=== PATIENT | female | born 1965 | race Caucasian/White ===

== ENCOUNTER 2018-02-26 18:25 | Observation (INO) ==
--- NOTE | 2018-02-26 18:40 | Emergency Department Note ---
Disposition Clinical Impression: Acute appendicitis Qualifiers: Acute appendicitis type: with localized peritonitis Appendicitis gangrene presence: without gangrene Appendicitis perforation presence: without perforation Appendicitis abscess presence: without abscess Qualified Code(s): K35.30 - Acute appendicitis with localized peritonitis, without perforation or gangrene Disposition: Home, Self-Care Condition: Good Referrals: Elaine Sosa ELECTROPHYSIOLOGY NURSE PRACTITIONER [Primary Care Provider] - Time of Disposition: 20:58 General Adult HPI - General Chief complaint: ED Abdominal Pain Stated complaint: Lower abd pain Time Seen by Provider: 02/26/18 18:38 Source: patient Limitations: no limitations Nursing Notes Reviewed: Yes Vital Signs Reviewed: Yes - History of Present Illness HPI Narrative: Female patient presenting to [facility] room complaining of abdominal pain is certainly yesterday around 11:00. She has no medical history does not take any medication is never had an abdominal surgery before. She states that she has had subjective fevers today. She thinks that they are low-grade. She has had associated nausea but no vomiting. No diarrhea. States the pain started out as a cramping sensation across her abdomen around her umbilicus however is now localized right lower quadrant. She does not have a desire to eat today. She denies any swelling or edema to her extremities. Denies any rashes. Denies any shortness of breath or chest pain. Denies any abdominal swelling. She denies any urinary symptoms such as dysuria or blood in her urine. Denies any blood in her stool. Pain Scale: 6 - Related Data Allergies Allergy/AdvReac Type Severity Reaction Status Date / Time No Known Allergies Allergy Verified 02/26/18 18:46 All systems ED: reviewed and negative except as stated. Review of Systems: As Per HPI Past Medical History - Past Medical History Attestation: Yes The following information was validated with the patient. Source: patient Medical history: Reports: no medical history Surgical history: Reports: no surgical history Physical Exam - General Limitations: no limitations General appearance: alert, in no apparent distress - Head Head exam: atraumatic, normocephalic, normal inspection - Eye Eye exam: Present: normal appearance, PERRL, EOMI - ENT ENT exam: normal exam, normal oropharynx, mucous membranes moist - Neck Neck exam: Present: normal inspection, full ROM, trachea midline - Chest Chest inspection: Present: normal inspection, symmetric chest wall rise - Respiratory Respiratory exam: Present: normal lung sounds bilaterally. Absent: respiratory distress, accessory muscle use - Cardiovascular Cardiovascular exam: Present: regular rate, normal rhythm, normal heart sounds - Abdominal Exam Abdominal exam: Present: soft, tenderness (To palpation of right lower quadrant.). Absent: distention, guarding, rebound, rigidity - Extremities Exam Extremities exam: Present: normal inspection, full ROM, normal capillary refill. Absent: tenderness, pedal edema - Back Exam Back exam: Present: normal inspection, full ROM. Absent: tenderness - Neurological Exam Neurological exam: Present: alert, oriented X3 - Psychiatric Psychiatric exam: Present: normal affect, normal mood - Skin Skin exam: Present: warm, dry, intact, normal color. Absent: rash Course Course Narrative: Patient with abdominal pain that started as a cramping sensation around her periumbilical area and has now localized her right lower quadrant. Started ye sterday. Does not want to eat today. No associated vomiting. The states that she does have a subjective low-grade fever. - Reevaluation(s) Reevaluation #1: Patient does have uncomplicated appendicitis. We will admit patient to Dr. Padilla. He is taking her to surgery at this time. - Consultations Consultation #1: I spoke with Dr Padilla. He will be over to see the patient. Time: 20:10 Vital Signs Temperature 99.2 F 02/26/18 18:26 Pulse Rate 103 02/26/18 18:26 Respiratory Rate 17 02/26/18 18:26 Blood Pressure 150/87 02/26/18 18:26 O2 Sat by Pulse Oximetry 95 02/26/18 18:26 Temperature 99.2 F 02/26/18 18:41 Pulse Rate 98 02/26/18 19:31 Respiratory Rate 18 02/26/18 20:48 Blood Pressure 131/54 02/26/18 20:48 O2 Sat by Pulse Oximetry 98 02/26/18 19:31 Oxygen Delivery Oxygen Delivery Room Air Medical Decision Making - Medical Records Medical records reviewed: Yes I reviewed the patient's medical records. - Lab Data Lab results reviewed: Yes I reviewed the patient's lab results. Result diagrams: 02/26/18 18:54 02/26/18 18:54 Lab Results 02/26/18 02/26/18 02/26/18 Range/Units 18:54 18:54 19:00 WBC 13.7 H (4.3-11.1) K/mcL RBC 4.30 (3.82-4.97) M/mcL Hgb 13.6 (11.5-15.4) g/dL Hct 40.4 (35.3-44.9) % MCV 94.0 (83.0-100.0) fL MCH 31.6 (28.0-33.3) pg MCHC 33.7 (31.6-35.5) g/dL RDW 12.3 (11.5-14.5) % Plt Count 291 (140-400) K/mcL MPV 9.1 L (9.4-12.4) fL Immature Gran % 0.4 (0-4) % Seg Neutrophils % 79.0 % Lymphocytes % 12.0 % Monocytes % 8.0 % Eosinophils % 0.4 % Basophils % 0.2 % Neutrophils # 10.8 H (1.6-8.9) K/mcL Lymphocytes # 1.6 (0.6-4.6) K/mcL Monocytes # 1.1 (0.0-1.3) K/mcL Eosinophils # 0.1 (0.0-0.6) K/mcL Basophils # 0.0 (0.0-0.2) K/mcL PT 13.7 H (9.4-12.1) Seconds INR 1.2 Sodium 138 (136-145) mEq/L Potassium 4.0 (3.5-5.1) mEq/L Chloride 102 (98-107) mEq/L Carbon Dioxide 28 (23-29) mEq/L BUN 13 (6-20) mg/dL Creatinine 0.84 (0.60-1.20) mg/dL Est GFR ( Amer) > 60 (> 60) Est GFR (Non-Af Amer) > 60 (> 60) BUN/Creatinine Ratio 15 (6-26) Glucose 94 (70-105) mg/dL Calculated Osmolality 286 (280-300) Calcium 9.3 (8.6-10.3) mg/dL Total Bilirubin 0.8 (0.3-1.0) mg/dL AST 14 (13-39) Units/L ALT 16 (7-52) Units/L Alkaline Phosphatase 75 (34-104) Units/L Serum Total Protein 7.8 (6.4-8.9) g/dL Albumin 4.4 (3.5-5.7) g/dL Globulin 3.4 (2.4-3.5) g/dL Albumin/Globulin Ratio 1.3 (1.1-2.2) Urine Color (Yellow) Urine Clarity (Clear) Urine pH (5.0-8.0) pH Units Ur Specific [place] (1.010-1.025) Urine Protein (Neg-Trace) mg/dL Urine Glucose (UA) (Normal) mg/dL Urine Ketones (Negative) mg/dL Urine Blood (Negative) Urine Nitrite (Negative) Urine Bilirubin (Negative) Urine Urobilinogen (Normal) mg/dL Ur Leukocyte Esterase (Negative) Ur Culture Indicated? (NO) 02/26/18 Range/Units 19:29 WBC (4.3-11.1) K/mcL RBC (3.82-4.97) M/mcL Hgb (11.5-15.4) g/dL Hct (35.3-44.9) % MCV (83.0-100.0) fL MCH (28.0-33.3) pg MCHC (31.6-35.5) g/dL RDW (11.5-14.5) % Plt Count (140-400) K/mcL MPV (9.4-12.4) fL Immature Gran % (0-4) % Seg Neutrophils % % Lymphocytes % % Monocytes % % Eosinophils % % Basophils % % Neutrophils # (1.6-8.9) K/mcL Lymphocytes # (0.6-4.6) K/mcL Monocytes # (0.0-1.3) K/mcL Eosinophils # (0.0-0.6) K/mcL Basophils # (0.0-0.2) K/mcL PT (9.4-12.1) Seconds INR Sodium (136-145) mEq/L Potassium (3.5-5.1) mEq/L Chloride (98-107) mEq/L Carbon Dioxide (23-29) mEq/L BUN (6-20) mg/dL Creatinine (0.60-1.20) mg/dL Est GFR ( Amer) (> 60) Est GFR (Non-Af Amer) (> 60) BUN/Creatinine Ratio (6-26) Glucose (70-105) mg/dL Calculated Osmolality (280-300) Calcium (8.6-10.3) mg/dL Total Bilirubin (0.3-1.0) mg/dL AST (13-39) Units/L ALT (7-52) Units/L Alkaline Phosphatase (34-104) Units/L Serum Total Protein (6.4-8.9) g/dL Albumin (3.5-5.7) g/dL Globulin (2.4-3.5) g/dL Albumin/Globulin Ratio (1.1-2.2) Urine Color Yellow (Yellow) Urine Clarity Clear (Clear) Urine pH 6.0 (5.0-8.0) pH Units Ur Specific [place] > 1.030 H (1.010-1.025) Urine Protein Negative (Neg-Trace) mg/dL Urine Glucose (UA) Normal (Normal) mg/dL Urine Ketones 40 H (Negative) mg/dL Urine Blood Negative (Negative) Urine Nitrite Negative (Negative) Urine Bilirubin Negative (Negative) Urine Urobilinogen Normal (Normal) mg/dL Ur Leukocyte Esterase Negative (Negative) Ur Culture Indicated? NO (NO) - Radiology Data Radiology results reviewed: Yes I reviewed the patient's radiology results. Abdomen/Pelvis CT 02/26/18 18:54 IMPRESSION: Acute uncomplicated appendicitis. Fatty infiltration of the liver. Gallbladder stones or sludge. D/ / Lisa Jeffries Cha, MD / Lisa Jeffries Cha, MD Interpreting Provider: Lisa Jeffries Cha, MD
--- NOTE | 2018-02-26 19:00 | Emergency Department Note ---
Disposition Clinical Impression: Acute appendicitis Disposition: Home, Self-Care Condition: Good General Adult HPI - General Chief complaint: ED Abdominal Pain Stated complaint: abd pain Time Seen by Provider: 02/26/18 18:38 Source: patient Limitations: no limitations - History of Present Illness Pain Scale: 5 - Related Data Allergies Allergy/AdvReac Type Severity Reaction Status Date / Time No Known Allergies Allergy Verified 02/26/18 18:46 Past Medical History - Past Medical History Medical history: Reports: no medical history Psychiatric history: Reports: no psych history - Social History Smoking Status: Former smoker Smokeless Tobacco Status: No Alcohol use: Reports: rarely Drug use: Reports: none Physical Exam - General Limitations: no limitations General appearance: alert Course Vital Signs Temperature 99.2 F 02/26/18 18:26 Pulse Rate 103 02/26/18 18:26 Respiratory Rate 17 02/26/18 18:26 Blood Pressure 150/87 02/26/18 18:26 O2 Sat by Pulse Oximetry 95 02/26/18 18:26 Temperature 99.2 F 02/26/18 18:41 Pulse Rate 98 02/26/18 19:31 Respiratory Rate 18 02/26/18 20:48 Blood Pressure 131/54 02/26/18 20:48 O2 Sat by Pulse Oximetry 98 02/26/18 19:31 Oxygen Delivery Oxygen Delivery Room Air Medical Decision Making - Lab Data Result diagrams: 02/26/18 18:54 02/26/18 18:54 Lab Results 02/26/18 02/26/18 02/26/18 Range/Units 18:54 18:54 19:00 WBC 13.7 H (4.3-11.1) K/mcL RBC 4.30 (3.82-4.97) M/mcL Hgb 13.6 (11.5-15.4) g/dL Hct 40.4 (35.3-44.9) % MCV 94.0 (83.0-100.0) fL MCH 31.6 (28.0-33.3) pg MCHC 33.7 (31.6-35.5) g/dL RDW 12.3 (11.5-14.5) % Plt Count 291 (140-400) K/mcL MPV 9.1 L (9.4-12.4) fL Immature Gran % 0.4 (0-4) % Seg Neutrophils % 79.0 % Lymphocytes % 12.0 % Monocytes % 8.0 % Eosinophils % 0.4 % Basophils % 0.2 % Neutrophils # 10.8 H (1.6-8.9) K/mcL Lymphocytes # 1.6 (0.6-4.6) K/mcL Monocytes # 1.1 (0.0-1.3) K/mcL Eosinophils # 0.1 (0.0-0.6) K/mcL Basophils # 0.0 (0.0-0.2) K/mcL PT 13.7 H (9.4-12.1) Seconds INR 1.2 Sodium 138 (136-145) mEq/L Potassium 4.0 (3.5-5.1) mEq/L Chloride 102 (98-107) mEq/L Carbon Dioxide 28 (23-29) mEq/L BUN 13 (6-20) mg/dL Creatinine 0.84 (0.60-1.20) mg/dL Est GFR ( Amer) > 60 (> 60) Est GFR (Non-Af Amer) > 60 (> 60) BUN/Creatinine Ratio 15 (6-26) Glucose 94 (70-105) mg/dL Calculated Osmolality 286 (280-300) Calcium 9.3 (8.6-10.3) mg/dL Total Bilirubin 0.8 (0.3-1.0) mg/dL AST 14 (13-39) Units/L ALT 16 (7-52) Units/L Alkaline Phosphatase 75 (34-104) Units/L Serum Total Protein 7.8 (6.4-8.9) g/dL Albumin 4.4 (3.5-5.7) g/dL Globulin 3.4 (2.4-3.5) g/dL Albumin/Globulin Ratio 1.3 (1.1-2.2) Urine Color (Yellow) Urine Clarity (Clear) Urine pH (5.0-8.0) pH Units Ur Specific [place] (1.010-1.025) Urine Protein (Neg-Trace) mg/dL Urine Glucose (UA) (Normal) mg/dL Urine Ketones (Negative) mg/dL Urine Blood (Negative) Urine Nitrite (Negative) Urine Bilirubin (Negative) Urine Urobilinogen (Normal) mg/dL Ur Leukocyte Esterase (Negative) Ur Culture Indicated? (NO) 02/26/18 Range/Units 19:29 WBC (4.3-11.1) K/mcL RBC (3.82-4.97) M/mcL Hgb (11.5-15.4) g/dL Hct (35.3-44.9) % MCV (83.0-100.0) fL MCH (28.0-33.3) pg MCHC (31.6-35.5) g/dL RDW (11.5-14.5) % Plt Count (140-400) K/mcL MPV (9.4-12.4) fL Immature Gran % (0-4) % Seg Neutrophils % % Lymphocytes % % Monocytes % % Eosinophils % % Basophils % % Neutrophils # (1.6-8.9) K/mcL Lymphocytes # (0.6-4.6) K/mcL Monocytes # (0.0-1.3) K/mcL Eosinophils # (0.0-0.6) K/mcL Basophils # (0.0-0.2) K/mcL PT (9.4-12.1) Seconds INR Sodium (136-145) mEq/L Potassium (3.5-5.1) mEq/L Chloride (98-107) mEq/L Carbon Dioxide (23-29) mEq/L BUN (6-20) mg/dL Creatinine (0.60-1.20) mg/dL Est GFR ( Amer) (> 60) Est GFR (Non-Af Amer) (> 60) BUN/Creatinine Ratio (6-26) Glucose (70-105) mg/dL Calculated Osmolality (280-300) Calcium (8.6-10.3) mg/dL Total Bilirubin (0.3-1.0) mg/dL AST (13-39) Units/L ALT (7-52) Units/L Alkaline Phosphatase (34-104) Units/L Serum Total Protein (6.4-8.9) g/dL Albumin (3.5-5.7) g/dL Globulin (2.4-3.5) g/dL Albumin/Globulin Ratio (1.1-2.2) Urine Color Yellow (Yellow) Urine Clarity Clear (Clear) Urine pH 6.0 (5.0-8.0) pH Units Ur Specific [place] > 1.030 H (1.010-1.025) Urine Protein Negative (Neg-Trace) mg/dL Urine Glucose (UA) Normal (Normal) mg/dL Urine Ketones 40 H (Negative) mg/dL Urine Blood Negative (Negative) Urine Nitrite Negative (Negative) Urine Bilirubin Negative (Negative) Urine Urobilinogen Normal (Normal) mg/dL Ur Leukocyte Esterase Negative (Negative) Ur Culture Indicated? NO (NO) Attestation Statement - Attestation Attestation: I examined this patient and my medical decision-making was reviewed with the Resident Physician. I agree with the documented findings, disposition and treatment plan as described except to the extent set forth below. Patient presents to the emergency department she compared lower abdominal pain. Patient saw her PCP who sent her to the emergency department for evaluation. Patient is not vomiting. No fever. Has not eaten today. On examination she has right lower quadrant tenderness. Plan. Labs, meds, and CT scan. CT scan shows acute unconjugated appendicitis. We will consult surgery. Patient to the OR
[2018-02-26 19:22] LABS: Basophils % 0.2 %; Eosinophils # 0.1 K/mcL (0.0-0.6); Eosinophils % 0.4 %; Hematocrit 40.4 % (35.3-44.9); Hemoglobin 13.6 g/dL (11.5-15.4); Immature Granulocytes % 0.4 % (0-4); Lymphocytes # 1.6 K/mcL (0.6-4.6); Mean Corpuscular HGB Conc 33.7 g/dL (31.6-35.5); Mean Corpuscular Hemoglobin 31.6 pg (28.0-33.3); Mean Platelet Volume 9.1 fL (9.4-12.4); Monocytes # 1.1 K/mcL (0.0-1.3); Neutrophils # 10.8 K/mcL (1.6-8.9); Platelet Count 291 K/mcL (140-400); Red Cell Distribution Width 12.3 % (11.5-14.5)
[2018-02-26 19:35] LABS: Alanine Aminotransferase 16 Units/L (7-52); Albumin 4.4 g/dL (3.5-5.7); Albumin/Globulin Ratio 1.3 (1.1-2.2); Alkaline Phosphatase 75 Units/L (34-104); Aspartate Amino Transferase 14 Units/L (13-39); BUN/Creatinine Ratio 15 (6-26); Bilirubin,Total 0.8 mg/dL (0.3-1.0); Blood Urea Nitrogen 13 mg/dL (6-20); Calcium 9.3 mg/dL (8.6-10.3); Carbon Dioxide 28 mEq/L (23-29); Chloride 102 mEq/L (98-107); Globulin 3.4 g/dL (2.4-3.5); Glucose 94 mg/dL (70-105); Osmolality,Calculated 286 (280-300); Sodium 138 mEq/L (136-145); Total Protein 7.8 g/dL (6.4-8.9); eGFR For Non-African Americans > 60 (> 60)
[2018-02-26 19:44] LABS: Bilirubin,Urine Negative (Negative); Blood,Urine Negative (Negative); Clarity,Urine Clear (Clear); Color,Urine Yellow (Yellow); Glucose,Urine (UA) Normal (Normal); Ketones,Urine 40 mg/dL (Negative); Leukocyte Esterase,Urine Negative (Negative); Nitrite,Urine Negative (Negative); Protein,Urine Negative (Neg-Trace); Specific Gravity,Urine > 1.030 (1.010-1.025); Urobilinogen,Urine Normal (Normal)
[2018-02-26 20:02] LABS: INR 1.2; Prothrombin Time 13.7 Seconds (9.4-12.1)
--- NOTE | 2018-02-26 20:46 | General Surg History&Physical ---
Date of Encounter: 02/26/18 Time of Encounter: 20:44 Assessment and Plan (1) Acute appendicitis Current Visit: Yes Status: Acute The assessment and plan as outlined above was discussed with the patient and/or family members who expressed understanding and agreement. All questions were answered. I expect to the patient that her CT scan images and report and laboratory studies are consistent with acute appendicitis and we will proceed with a laparoscopic appendectomy. Risks and benefits have been discussed with the patient and she agrees to the above plan. Qualifiers: Acute appendicitis type: with localized peritonitis Appendicitis gangrene presence: without gangrene Appendicitis perforation presence: without perforation Appendicitis abscess presence: without abscess Qualified Code(s): K35.30 - Acute appendicitis with localized peritonitis, without perforation or gangrene History of Present Illness Chief complaint: Right lower abdominal pain HPI: Ms. Rubalcava is a 52 year old female with no significant past medical history who states that yesterday at 11 AM she started to have right lower quadrant/pelvic pain. The pain was not really severely she was involved in any type of activity. She denies any nausea or vomiting and denies any diarrhea or constipation. Due to the persistent pain symptoms she presented herself to the emergency room and laboratory studies and a CT scan were performed demonstrating acute appendicitis. Past Med Surg Social Fam HX - Past Medical History Medical history: no medical history Psychiatric history: no psych history - Past Surgical History Surgical History: other (Left wrist ganglion cyst) - Social History Smoking Status: Former smoker Smokeless Tobacco Status: No Alcohol use: rarely Drug use: none Medications and Allergies Allergy/AdvReac Type Severity Reaction Status Date / Time No Known Allergies Allergy Verified 02/26/18 18:46 Review of Systems All systems PM: reviewed and no additional remarkable complaints except as stated All systems PM: The remainder of the systems were reviewed and are negative General Surgery Exam Initial Vital Signs Temp Pulse Resp BP Pulse Ox 99.2 F 103 17 150/87 95 02/26/18 18:26 02/26/18 18:26 02/26/18 18:26 02/26/18 18:26 02/26/18 18:26 - Eyes PERRL, normal ocular movement - Respiratory normal expansion, normal respiratory effort - Cardiovascular Cardiovascular exam: Present: RRR, no murmurs/rubs/gallops - Abdomen Abdomen general surgery: Present: soft, tender (Unasyn the right lower quadrant/pelvic region) - Neurologic Present: CN 2-12 grossly intact - Musculoskeletal Present: other (Clubbing cyanosis or edema) - Psychiatric Psychiatric general surgery: Present: A&Ox3 Results - Labs 02/26/18 18:54 02/26/18 18:54 Abnormal lab results WBC 13.7 K/mcL (4.3-11.1) H 02/26/18 18:54 MPV 9.1 fL (9.4-12.4) L 02/26/18 18:54 Neutrophils # 10.8 K/mcL (1.6-8.9) H 02/26/18 18:54 PT 13.7 Seconds (9.4-12.1) H 02/26/18 19:00 Ur Specific [place] > 1.030 (1.010-1.025) H 02/26/18 19:29 Urine Ketones 40 mg/dL (Negative) H 02/26/18 19:29 Diabetes panel 02/26/18 Range/Units 18:54 Sodium 138 (136-145) mEq/L Potassium 4.0 (3.5-5.1) mEq/L Chloride 102 (98-107) mEq/L Carbon Dioxide 28 (23-29) mEq/L BUN 13 (6-20) mg/dL Creatinine 0.84 (0.60-1.20) mg/dL Glucose 94 (70-105) mg/dL Calcium 9.3 (8.6-10.3) mg/dL AST 14 (13-39) Units/L ALT 16 (7-52) Units/L Alkaline Phosphatase 75 (34-104) Units/L Albumin 4.4 (3.5-5.7) g/dL Calcium panel 02/26/18 Range/Units 18:54 Calcium 9.3 (8.6-10.3) mg/dL Albumin 4.4 (3.5-5.7) g/dL Pituitary panel 02/26/18 Range/Units 18:54 Sodium 138 (136-145) mEq/L Potassium 4.0 (3.5-5.1) mEq/L Chloride 102 (98-107) mEq/L Carbon Dioxide 28 (23-29) mEq/L BUN 13 (6-20) mg/dL Creatinine 0.84 (0.60-1.20) mg/dL Glucose 94 (70-105) mg/dL Calcium 9.3 (8.6-10.3) mg/dL Adrenal panel 02/26/18 Range/Units 18:54 Sodium 138 (136-145) mEq/L Potassium 4.0 (3.5-5.1) mEq/L Chloride 102 (98-107) mEq/L Carbon Dioxide 28 (23-29) mEq/L BUN 13 (6-20) mg/dL Creatinine 0.84 (0.60-1.20) mg/dL Glucose 94 (70-105) mg/dL Calcium 9.3 (8.6-10.3) mg/dL Total Bilirubin 0.8 (0.3-1.0) mg/dL AST 14 (13-39) Units/L ALT 16 (7-52) Units/L Alkaline Phosphatase 75 (34-104) Units/L Albumin 4.4 (3.5-5.7) g/dL All other labs normal. - Imaging CT scan - abdomen: report reviewed, image reviewed (I personally reviewed the CT scan images and report which show evidence of inflammation around the appendix and an enlarged appendix consistent with acute appendicitis)
--- NOTE | 2018-02-26 21:03 | Anesthesia Evaluation PreOp ---
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 Significant HX Other Medical History: Denies Any Significant HX Anesthesia History: No Prior Anesthetic Complications, Past Anesthesia Alcohol Use: rarely Drug use: none Medications and Allergies Allergy/AdvReac Type Severity Reaction Status Date / Time No Known Allergies Allergy Verified 02/26/18 18:46 - Meds/Allergy Pre-op Review Medications Reviewed: Yes Allergies Reviewed: Yes Beta Blockers on Current Med List: No Anesthesia Results - Labs 02/26/18 18:54 02/26/18 18:54 Anesthesia Exam Vital Signs/O2 Sat, Most Current Temp Pulse Resp BP Pulse Ox 99.2 F 98 18 131/54 98 02/26/18 18:41 02/26/18 19:31 02/26/18 20:48 02/26/18 20:48 02/26/18 19:31 Height: 5'10"/1.78m Weight: 248 lbs/112.5 kg NPO (# of Hours): 8 Pain Scale: 0 Pain Scale Used: Numeric (1 - 10) - HEENT Pupil (Motor): EOMI Mallampati: III Teeth: Normal Oral Opening: Greater than 3 - WEAVING TEACHER LOC: Oriented WEAVING TEACHER Motor: Normal RUE, Normal LUE, Normal RLE, Normal LLE, Normal Face WEAVING TEACHER Sensory: Normal: RUE, LUE, RLE, LLE, Face - Cardiac Rhythm: Regular Murmur: None - Pulmonary Breath Sounds: bilateral Clear Respiratory Effort: Symmetrical Anesthesia Assess/Plan ASA Score: 2 Modified Eileen Scale for Level of Consciousness: Cooperative, oriented, and tranquil Anesthetic Plan: General Monitoring Plan: Standard Monitors Recovery Plan: PACU
[2018-02-26] MEDS ORDERED: *HR* HYDROmorphone (PF) 1 MG/ML SYRINGE IVP PRN (21:12)
[2018-02-26] MEDS ORDERED: Ondansetron 4 MG/2 ML VIAL IVP ONE (21:12)
[2018-02-26] MEDS ORDERED: Acetaminophen IV 1,000 MG/100 ML INFUS..BTL ONE (21:14)
[2018-02-26] MEDS ORDERED: Neostigmine Methylsulfate 3 MG/3 ML SYRINGE ONE (21:15)
[2018-02-26] MEDS ORDERED: *HR* Propofol 200 MG/20 ML VIAL IVP ONE (21:18)
[2018-02-26] MEDS ORDERED: Ondansetron 4 MG/2 ML VIAL ONE (21:18)
[2018-02-26] MEDS ORDERED: *HR* Rocuronium Bromide 50 MG/5 ML VIAL ONE (21:18)
[2018-02-26] MEDS ORDERED: Lidocaine -MPF 2% 2 ML VIAL ONE (21:18)
[2018-02-26] MEDS ORDERED: *HR* Succinylcholine 200 MG/10 ML VIAL IVP ONE (21:18)
[2018-02-26] MEDS ORDERED: *HR* Midazolam HCl 2 MG/2 ML VIAL ONE (21:18)
[2018-02-26] MEDS ORDERED: *HR* FentaNYL (PF) 100 MCG/2 ML VIAL ONE (21:18)
[2018-02-26] MEDS ORDERED: Dexamethasone 4 MG/ML VIAL ONE (21:18)
[2018-02-26] MEDS ORDERED: CefOXitin 2,000 MG VIAL ONE (21:22)
[2018-02-26] MEDS ORDERED: *HR* Morphine 10 MG/ML VIAL ONE (22:24)
--- NOTE | 2018-02-26 22:32 | Operative Note ---
Date of procedure: 02/26/18 Pre-op diagnosis: Acute appendicitis Post-op diagnosis: same Procedure: Laparoscopic appendectomy Anesthesia: [facility] Surgeon: Rosas Padilla Was there an back office medical assistant present: No Estimated blood loss (cc): 15 Specimen: appendix Condition: stable Disposition: PACU Procedure in Detail: Date of surgery: 02/26/18 After properly identifying the patient, the patient was brought to the operating room and placed in the supine position. After proper IV sedation was achieved followed by general endotracheal intubation, the patient's abdomen was prepped and draped in a normal sterile fashion. A timeout was performed noting the patient's name and type of procedure to be performed. A subumbilical incision was made down to the level of the rectus fascia. Once rectus fascia was incised and the abdomen was entered, a 12 mm port was placed in the incision and the abdomen was insufflated with carbon dioxide. A laparoscopic camera was placed through the port which showed no injury to the edge abdominal organs upon entry. A suprapubic 5 mm port and a left lower quadrant 5 mm port were then placed under direct camera visualization. The patient was placed in a Trendelenburg position with the left side tilted downwards. The right lower quadrant was examined and there was evidence of inflammation and adherence of the small bowel towards the colon. This was bluntly dissected away until the appendix could be identified with a rim of fibrinous exudate noted around it. The appendix was carefully grasped and retracted superiorly which revealed evidence of a small leak or perforation. This was immediately suctioned and the base of the appendix was examined. A [place] dissector was used to dissect between the base of the appendix and the measle appendix. A THOMAS stapler was used to transect across the base of the appendix. This also was used to transect across the measle appendix however during the dissection and retraction there was bleeding noted from the apparent location of the appendiceal artery. This was hemostatically controlled with laparoscopic clips. The remaining portion of the mesentery was again transected with a THOMAS stapler and the appendix was removed from the abdomen via an Endobag. Should of the right lower quadrant demonstrated maintenance of hemostasis and a right lower quadrant and pelvis were carefully and copiously irrigated with normal saline solution. Reinspection was once again performed in the right lower quadrant which was maintained. All ports are then removed from the abdomen after the abdomen was desufflated. The rectus fascia for the subumbilical incision was reapproximated with a [id number] 0 Vicryl suture. The subcutaneous tissue was reapproximated with a 3-0 Vicryl suture and the epidermal and dermal layers for the remaining incisions were closed with 4-0 Monocryl sutures. Needle, sponge, and instrument counts were correct 2 and the incisions were covered with Steri-Strips and Band-Aids. The patient was aroused from IV sedation, extubated in the operating room without complication, and transported to the recovery room stable condition.
[2018-02-26] MEDS ORDERED: Ondansetron 4 MG/2 ML VIAL IVP PRN (23:26)
[2018-02-26] MEDS ORDERED: MORPHINE SUL Oral CONC 10 MG/0.5 ML ORAL.SYG SL PRN (23:26)
[2018-02-26] MEDS ORDERED: *HR* OxyCODONE/APAP 7.5/325 TABLET PO PRN (23:26)
--- NOTE | 2018-02-26 23:34 | Anesthesia Evaluation Post Op ---
Date of Encounter: 02/26/18 Time of Encounter: 23:33 - Vital Signs Vital Signs: Vital Signs/O2 Sat, Most Current Temp Pulse Resp BP Pulse Ox 97.1 F L 74 16 110/67 94 02/26/18 23:15 02/26/18 23:15 02/26/18 23:15 02/26/18 23:15 02/26/18 23:15 - Lungs Lungs: Clear Ascult./Percussion - Airway Airway: Non-obstructed - Cardiovascular Regular Rate - Mental Status Mental Status: Alert & Oriented, Answers Appropriately - Pain Pain Scale: 2 Pain Scale used: Numeric (1 - 10) - Nausea Vomiting Nausea Vomiting: Not Present - Hydration Hydration: Ice chips, Has not voided - Discharge PostOp Status: Transfer Patient to floor
[2018-02-27] MEDS: 0.9 % Sodium Chloride 1,000 ML IVC SCH ×2 (00:25→11:40)
[2018-02-27] MEDS: Ketorolac 30 MG/ML VIAL IVP SCH ×3 (00:34→11:39)
[2018-02-27 05:21] LABS: Basophils % 0.1 %; Hematocrit 37.9 % (35.3-44.9); Hemoglobin 12.5 g/dL (11.5-15.4); Immature Granulocytes % 0.5 % (0-4); Lymphocytes # 0.5 K/mcL (0.6-4.6); Lymphocytes % 3.1 %; Mean Corpuscular Hemoglobin 31.6 pg (28.0-33.3); Mean Corpuscular Volume 95.7 fL (83.0-100.0); Mean Platelet Volume 8.9 fL (9.4-12.4); Monocytes # 1.2 K/mcL (0.0-1.3); Monocytes % 6.5 %; Neutrophils # 15.8 K/mcL (1.6-8.9); Platelet Count 261 K/mcL (140-400); Red Blood Count 3.96 M/mcL (3.82-4.97); Red Cell Distribution Width 12.5 % (11.5-14.5); Segmented Neutrophils % 89.8 %
[2018-02-27 05:42] LABS: BUN/Creatinine Ratio 20 (6-26); Blood Urea Nitrogen 17 mg/dL (6-20); Calcium 8.7 mg/dL (8.6-10.3); Carbon Dioxide 26 mEq/L (23-29); Chloride 104 mEq/L (98-107); Glucose 150 mg/dL (70-105); Osmolality,Calculated 290 (280-300); Potassium 4.7 mEq/L (3.5-5.1); Sodium 138 mEq/L (136-145); eGFR For Non-African Americans > 60 (> 60)
[2018-02-27] MEDS ORDERED: cefOXitin 1,000 MG in Water for inj. (sterile) 20 ML 10 ML IVPB SCH ×2 (06:00)
[2018-02-27] MEDS ORDERED: *HR* Heparin 5,000 UNIT/ML VIAL SQ SCH (06:00)
[2018-02-27] MEDS ORDERED: Pantoprazole 40 MG VIAL IVP SCH (06:30)
--- NOTE | 2018-02-27 10:28 | General Surgery Progress Note ---
Time of Encounter: 10:24 - Assessment and Plan (1) Acute appendicitis Current Visit: Yes Status: Acute POD [address] Padilla; improving pain - serial abdominal exams - supportive care and pain management - GI prophylaxis - continue IVF - continue mefoxin - start regular diet - up to chair and ambulate Possible discharge over weekend pending clinical course. Further recommendations pending rounds... Qualifiers: Acute appendicitis type: with localized peritonitis Appendicitis gangrene presence: without gangrene Appendicitis perforation presence: without perforation Appendicitis abscess presence: without abscess Qualified Code(s): K35.30 - Acute appendicitis with localized peritonitis, without perforation or gangrene Subjective Patient reports: feels better, pain is less (mostly at incisions ), tolerating liquids well (clears), no flatus, no bowel movement, afebrile Objective Vital Signs - Last 8 Hours Temp Pulse Resp BP Pulse Ox 02/27/18 08:16 97.8 F 82 16 100/65 90 02/27/18 02:30 86 14 102/70 96 Intake and Output 02/26/18 02/27/18 02/27/18 23:59 07:59 15:59 Intake Total 60 / 60 480 / 480 Output Total 0 / 0 Balance -15 / -15 60 / 60 480 / 480 Intake: Oral 60 / 60 480 / 480 Output: Urine 0 / 0 Estimated Blood Loss Other: Meal Breakfast Percent of Meal Consumed 100% Weight 112.491 kg - General physical appearance well developed, well nourished, no distress, obese - Eyes normal ocular movement - ENT normal pinna, normal nares, normal mucosa - Respiratory normal expansion, normal respiratory effort, clear to auscultation - Cardiovascular Cardiovascular exam: Present: RRR, no murmurs/rubs/gallops - Abdomen Abdomen: Present: bowel sounds present, soft Abdominal Tenderness: LLQ (at incisions ) Hernia: none - Incision Incision: Present: clean and dry, approximated (steri strips ). Absent: draining, inflamed, erythema - Integumentary no rash, no growths, no abnormal pigmentation - Neurologic CN 2-12 grossly intact, normal coordination, normal sensation - Musculoskeletal normal gait, normal posture - Psychiatric oriented to time, oriented to person, oriented to place, speech is normal, memory intact - Labs 02/27/18 04:58 02/27/18 04:58 Diabetes panel 02/26/18 02/27/18 Range/Units 18:54 04:58 Sodium 138 138 (136-145) mEq/L Potassium 4.0 4.7 (3.5-5.1) mEq/L Chloride 102 104 (98-107) mEq/L Carbon Dioxide 28 26 (23-29) mEq/L BUN 13 17 (6-20) mg/dL Creatinine 0.84 0.87 (0.60-1.20) mg/dL Glucose 94 150 H (70-105) mg/dL Calcium 9.3 8.7 (8.6-10.3) mg/dL AST 14 (13-39) Units/L ALT 16 (7-52) Units/L Alkaline Phosphatase 75 (34-104) Units/L Albumin 4.4 (3.5-5.7) g/dL Calcium panel 02/26/18 02/27/18 Range/Units 18:54 04:58 Calcium 9.3 8.7 (8.6-10.3) mg/dL Albumin 4.4 (3.5-5.7) g/dL Pituitary panel 02/26/18 02/27/18 Range/Units 18:54 04:58 Sodium 138 138 (136-145) mEq/L Potassium 4.0 4.7 (3.5-5.1) mEq/L Chloride 102 104 (98-107) mEq/L Carbon Dioxide 28 26 (23-29) mEq/L BUN 13 17 (6-20) mg/dL Creatinine 0.84 0.87 (0.60-1.20) mg/dL Glucose 94 150 H (70-105) mg/dL Calcium 9.3 8.7 (8.6-10.3) mg/dL Adrenal panel 02/26/18 02/27/18 Range/Units 18:54 04:58 Sodium 138 138 (136-145) mEq/L Potassium 4.0 4.7 (3.5-5.1) mEq/L Chloride 102 104 (98-107) mEq/L Carbon Dioxide 28 26 (23-29) mEq/L BUN 13 17 (6-20) mg/dL Creatinine 0.84 0.87 (0.60-1.20) mg/dL Glucose 94 150 H (70-105) mg/dL Calcium 9.3 8.7 (8.6-10.3) mg/dL Total Bilirubin 0.8 (0.3-1.0) mg/dL AST 14 (13-39) Units/L ALT 16 (7-52) Units/L Alkaline Phosphatase 75 (34-104) Units/L Albumin 4.4 (3.5-5.7) g/dL Consult Discharge Plan - Plan Referrals: Elaine Sosa, [employer] [Primary Care Provider] - Prescriptions: OxyCODONE/APAP 5/325 [Percocet 5/325 MG] 1 each PO Q6HR PRN 7 Days #28 tablet PRN Reason: Pain Ondansetron HCl [Zofran] 4 mg PO Q8HR PRN #15 tab PRN Reason: Nausea And Vomiting Docusate [Colace] 100 mg PO BID #45 capsule Ibuprofen 800 mg PO Q8-10H #45 tablet
[2018-02-27 10:40] VITALS: BP 101/66
--- NOTE | 2018-02-27 12:02 | Discharge Summary ---
Orders not resulted at time of discharge: Pending orders 02/26/18 22:48 Surgical Pathology [PTH] Routine Date of Encounter: 02/27/18 Time of Encounter: 12:02 - Discharge Diagnosis (1) Acute appendicitis Priority: Primary Status: Acute Qualifiers: Acute appendicitis type: with localized peritonitis Appendicitis gangrene presence: without gangrene Appendicitis perforation presence: without perforation Appendicitis abscess presence: without abscess Qualified Code(s): K35.30 - Acute appendicitis with localized peritonitis, without perforation or gangrene General Surgery Exam Initial Vital Signs Temp Pulse Resp BP Pulse Ox 99.2 F 103 17 150/87 95 02/26/18 18:26 02/26/18 18:26 02/26/18 18:26 02/26/18 18:26 02/26/18 18:26 - General physical appearance well developed, well nourished, no distress, obese - Eyes normal ocular movement - ENT normal pinna, normal nares, normal mucosa - Respiratory normal expansion, normal respiratory effort, clear to auscultation - Cardiovascular Cardiovascular exam: Present: RRR, no murmurs/rubs/gallops - Abdomen Abdomen general surgery: Present: bowel sounds present, soft. Absent: distended Abdominal Tenderness: Present: LLQ (mild) Hernia: Present: none - Incision Incision: Present: clean and dry, approximated (steri strips). Absent: draining, inflamed, erythema - Integumentary Integumentary general surgery: Present: warm and dry, no abnormal pigmentation. Absent: diaphoresis - Neurologic Present: CN 2-12 grossly intact, normal coordination, normal sensation - Musculoskeletal Present: normal gait, normal posture - Psychiatric Psychiatric general surgery: Present: A&Ox3, speech is normal, memory intact - Hospital Course Hospital course: Ms. Rubalcava is a 52 year old female presented with acute abdominal pain and underwent a lap appy with Dr Padilla on 02-26-18 foudn to have a appendix inflamed with near perforation She recovered well and was able to tolerate regular diet that next day. Her bowel sounds were normal and only limited tenderness. Her WBC increased from 13.7 to 17 which may be expected post surgical change. She has discharged with scripts for pain medication and 7 days of Augmentin. - Time Spent with Patient Total time spent providing and/or coordinating discharge services: - Discharge Medications Prescriptions: OxyCODONE/APAP 5/325 [Percocet 5/325 MG] 1 each PO Q6HR PRN 7 Days #28 tablet PRN Reason: Pain Ondansetron HCl [Zofran] 4 mg PO Q8HR PRN #15 tab PRN Reason: Nausea And Vomiting Amoxicillin/Clavulanate [Augmentin] 500 mg PO BIDWM #14 tablet Docusate [Colace] 100 mg PO BID #45 capsule RX: Ibuprofen 800 mg PO Q8-10H #45 tablet Home Medications: Amoxicillin/Clavulanate [Augmentin] 500 mg PO BIDWM #14 tablet 02/27/18 [Rx] Docusate [Colace] 100 mg PO BID #45 capsule 02/27/18 [Rx] Ondansetron HCl [Zofran] 4 mg PO Q8HR PRN #15 tab 02/27/18 [Rx] OxyCODONE/APAP 5/325 [Percocet 5/325 MG] 1 each PO Q6HR PRN 7 Days #28 tablet 02/27/18 [Rx] RX: Ascorbic Acid [Vitamin C] 1,000 mg PO DAILY 02/27/18 [History] RX: Cyanocobalamin (Vitamin B-12) [Vitamin B-12] 1,000 mcg PO DAILY 02/27/18 [History] RX: Echinacea Angust,Purpurea Rtxt [Echinacea 500 mg Capsule] 1 cap PO DAILY 02/27/18 [History] RX: Ibuprofen 800 mg PO Q8-10H #45 tablet 02/27/18 [Rx] RX: Multivit-Min/Iron/Folic/Lutein [Centrum Silver Women Tablet] 1 tab PO DAILY 02/27/18 [History] RX: [place]-3/Dha/Epa/Fish Oil [[place]-3 Fish Oil 1,000 mg Sfgl] 1,000 mg PO DAILY 02/27/18 [History] Allergies/Adverse Reactions: Allergy/AdvReac Type Severity Reaction Status Date / Time No Known Allergies Allergy Verified 02/26/18 18:46 Date of admission: 02/26/18 21:02 Primary care physician: Elaine Sosa CNP Discharging clinician: Yaquelin Cm Anticipated date of discharge: 02/27/18 Labs on day of discharge: Labs from last 24 hours 02/27/18 02/27/18 02/26/18 04:58 04:58 19:29 WBC 17.6 H RBC 3.96 Hgb 12.5 Hct 37.9 MCV 95.7 MCH 31.6 MCHC 33.0 RDW 12.5 Plt Count 261 MPV 8.9 L Immature Gran % 0.5 Seg Neutrophils % 89.8 Lymphocytes % 3.1 Monocytes % 6.5 Eosinophils % 0.0 Basophils % 0.1 Neutrophils # 15.8 H Lymphocytes # 0.5 L Monocytes # 1.2 Eosinophils # 0.0 Basophils # 0.0 PT INR Sodium 138 Potassium 4.7 Chloride 104 Carbon Dioxide 26 BUN 17 Creatinine 0.87 Est GFR ( Amer) > 60 Est GFR (Non-Af Amer) > 60 BUN/Creatinine Ratio 20 Glucose 150 H Calculated Osmolality 290 Calcium 8.7 Total Bilirubin AST ALT Alkaline Phosphatase Serum Total Protein Albumin Globulin Albumin/Globulin Ratio Urine Color Yellow Urine Clarity Clear Urine pH 6.0 Ur Specific Earling > 1.030 H Urine Protein Negative Urine Glucose (UA) Normal Urine Ketones 40 H Urine Blood Negative Urine Nitrite Negative Urine Bilirubin Negative Urine Urobilinogen Normal Ur Leukocyte Esterase Negative Ur Culture Indicated? NO 02/26/18 02/26/18 02/26/18 19:00 18:54 18:54 WBC 13.7 H RBC 4.30 Hgb 13.6 Hct 40.4 MCV 94.0 MCH 31.6 MCHC 33.7 RDW 12.3 Plt Count 291 MPV 9.1 L Immature Gran % 0.4 Seg Neutrophils % 79.0 Lymphocytes % 12.0 Monocytes % 8.0 Eosinophils % 0.4 Basophils % 0.2 Neutrophils # 10.8 H Lymphocytes # 1.6 Monocytes # 1.1 Eosinophils # 0.1 Basophils # 0.0 PT 13.7 H INR 1.2 Sodium 138 Potassium 4.0 Chloride 102 Carbon Dioxide 28 BUN 13 Creatinine 0.84 Est GFR ( Amer) > 60 Est GFR (Non-Af Amer) > 60 BUN/Creatinine Ratio 15 Glucose 94 Calculated Osmolality 286 Calcium 9.3 Total Bilirubin 0.8 AST 14 ALT 16 Alkaline Phosphatase 75 Serum Total Protein 7.8 Albumin 4.4 Globulin 3.4 Albumin/Globulin Ratio 1.3 Urine Color Urine Clarity Urine pH Ur Specific Earling Urine Protein Urine Glucose (UA) Urine Ketones Urine Blood Urine Nitrite Urine Bilirubin Urine Urobilinogen Ur Leukocyte Esterase Ur Culture Indicated? - Impressions ITS Impressions Abdomen/Pelvis CT 02/26/18 18:54 IMPRESSION: Acute uncomplicated appendicitis. Fatty infiltration of the liver. Gallbladder stones or sludge. D/ / Lisa Jeffries Cha, MD / Lisa Jeffries Cha, MD Interpreting Provider: Lisa Jeffries Cha, MD - Patient Status Disposition: Home, Self-Care Condition: Good Functional capacity at discharge: independent ambulation Overall status at discharge: patient is progressing back to baseline - Discharge Instructions Instructions: Oxycodone/Acetaminophen (By mouth), Laparoscopic Appendectomy (DC) Follow Up With: Rosas Padilla MD [Partnered Physician] - 03/23/18 9:00 am Additional Instructions: Please follow up in office in 2 weeks Wound Care: Remove dressing . Shower/Wash with antibacterial soap. May leave incisions open to air or cover with a dry dressing for comfort General Surgical Discharge Instructions 1. No pushing, pulling, or lifting greater than 15 lbs for 2-4 weeks (depending upon procedure). 2. You may shower beginning today, but no tub baths, soaking, or swimming for 2 weeks. 3. You may resume driving when you are off narcotics and are safe to react in a car. 4. Take ibuprofen every 8 hours for discomfort. If this does not relieve discomfort, you may take the as needed Percocet. Take narcotics as directed. Do not take more narcotics then directed and do not share your narcotics with any other person. Do not drink alcohol while on narcotics. 5. Take stool softeners (Colace) or a water based laxative (Miralax) while taking narcotics. You may hold for loose stools. 6. Report any fevers greater than 100.5F, increase abdominal discomfort, drainage that looks like pus, increased redness or pain at the surgical site, or any vomiting. 7. Report any pain in the calves, shortness of breath, or rapid heartbeat. 8. Follow-up in the office as directed. 9. If you were prescribed antibiotics, do not stop them without talking to your provider. - Diet and Activity Activity: increase activity as tolerated Diet: advance to your usual diet
== END 2018-02-27 13:27 | disposition home or self-care (01) ==
LOC: 3ANU 18:25 → EMEROOARM 18:25 → 3ANU 20:48
PROVIDERS: ADMIT Surgery; ATTEND Surgery